=== PATIENT | female | born 1980 | race Caucasian/White ===

== ENCOUNTER 2019-08-04 15:13 | Outpatient (CLI) | payer OTHER, SELFPAY ==
[2019-08-04 15:41] LABS: Hematocrit 35.5 % (37.0-47.0); Hemoglobin 11.8 g/dL (12.0-15.0); Mean Corpuscular HGB Conc 33.2 g/dl (32-36); Mean Corpuscular Hemoglobin 31.7 pg (26-34); Mean Corpuscular Volume 95.4 fl (80-100); Mean Platelet Volume 9.5 fl (7.4-10.4); Platelet Count Result 191 k/mm3 (150-375); Red Blood Count 3.72 M/mm3 (4.2-5.4); Red Cell Distribution Width 11.9 % (11.5-14.5); White Blood Count 4.9 K/mm3 (4.5-10.0)
[2019-08-04 15:48] LABS: Alanine Aminotransferase 17 U/L (4-35); Albumin Level 3.9 g/dL (3.5-5.1); Alkaline Phosphatase 66 U/L (38-126); Aspartate Amino Transferase 21 U/L (14-36); Bilirubin,Total 0.2 mg/dL (0.2-1.3); Blood Urea Nitrogen 12 mg/dL (7-17); CRP < 0.5 mg/dL (<1.0); Calcium 8.7 mg/dL (8.4-10.2); Carbon Dioxide 28 mmol/L (22-30); Chloride 100 mmol/L (98-107); Estimated Glomerular Filt Rate > 60; Glucose 74 mg/dL (65-105); Potassium 3.7 mmol/L (3.4-5.0); Sodium 135 mmol/L (137-145)
[2019-08-04 15:52] LABS: Complement C3 87 mg/dL (88-165)
[2019-08-04 16:08] LABS: Erythrocyte Sedimentation Rate 20 mm/hr (0-20)
[2019-08-06 19:19] LABS: SS-A <1.0; SS-B <1.0
[2019-08-10 07:23] LABS: SM Antibody <1.0; SM/RNP Antibody <1.0
== END 2019-08-04 15:14 | disposition home or self-care (01) ==
LOC: ANHLAB 15:15
PROVIDERS: PCP Physician Assistant; Visit Provider Internal Medicine
DX: M06.041 Rheumatoid arthritis without rheumatoid factor, right hand (principal); M06.042 Rheumatoid arthritis without rheumatoid factor, left hand; M19.90 Unspecified osteoarthritis, unspecified site
CPT/HCPCS: 36415; 80053; 85027; 85652; 86140; 86160; 86225; 86235

== ENCOUNTER 2019-09-15 13:01 | Outpatient (CLI) | payer OTHER, SELFPAY ==
[2019-09-18 10:04] LABS: Lupus dRVVT 1:1 Mix Interpreta Not Indicated; Lupus dRVVT Screen 31 sec (<=45); PTT-LA Screen 39 sec (<=40)
== END 2019-09-15 13:02 | disposition home or self-care (01) ==
PROVIDERS: PCP Physician Assistant; Visit Provider Internal Medicine
DX: M06.041 Rheumatoid arthritis without rheumatoid factor, right hand (principal); M06.042 Rheumatoid arthritis without rheumatoid factor, left hand
CPT/HCPCS: 36415; 85613; 85730

== ENCOUNTER 2019-09-23 12:30 | Emergency (ER) | payer OTHER, SELFPAY ==
--- NOTE | 2019-09-23 12:43 | ED.GENADULT ---
HPI - General Adult General Chief complaint: Wound/Laceration Stated complaint: Right hand laceration Time Seen by Provider: 09/23/19 13:00 Source: patient Mode of arrival: ambulatory Limitations: no limitations History of Present Illness HPI narrative: 39-year-old female patient presents to the [facility] with complaints of a laceration to the right palm that happened approximately 2 hours prior to arrival. Patient states that she was cutting some vegetables and sliced her hand on a knife. Patient states that her last tetanus shot was approximately 1 year ago. Patient denies any problems with range of motion to the knee. Patient denies any numbness or tingling. Related Data Home Medications Medication Instructions Recorded Confirmed lamotrigine 100 mg tablet 100 mg PO DAILY 05/13/19 09/23/19 multivitamin 1 tablet PO DAILY 05/13/19 09/23/19 phenylephrine HCl 10 mg tablet 10 mg PO Q4-6H PRN 05/13/19 09/23/19 vilazodone 40 mg tablet 40 mg PO DAILY 05/13/19 09/23/19 potassium 99 mg tablet 99 mg PO .qd tablet 05/25/19 09/23/19 Allergies Allergy/AdvReac Type Severity Reaction Status Date / Time sulfamethoxazole Allergy Severe HIVES Verified 09/23/19 12:51 levofloxacin Allergy Unknown Unknown Verified 09/23/19 12:51 sulfamethizole Allergy Unknown Unknown Verified 09/23/19 12:51 trimethoprim Allergy Unknown Unknown Verified 09/23/19 12:51 Review of Systems Review of Systems: Narrative: CONSTITUTIONAL: Denies fever, chills, or sweats. EYES: Denies visual changes, redness, or discharge. ENT: Denies rhinorrhea, congestion, sore throat, or otalgia. CARDIOVASCULAR: Denies chest pain, palpitations, or edema. RESPIRATORY: Denies cough or dyspnea. GASTROINTESTINAL: Denies abdominal pain, nausea, vomiting, or diarrhea. GENITOURINARY: Denies dysuria or hematuria. SKIN: Denies rash or itching. Positive laceration to right hand MUSCULOSKELETAL: Denies back pain, joint pain, or myalgia. NEUROLOGIC: Denies headache, numbness, or weakness. PSYCHIATRIC: Denies anxiety or depression. [facility] Past Medical History Medical History Anxiety Arthritis Bilateral hand pain Depression History of gastrectomy Hypothyroidism Orthostatic hypertension Seronegative rheumatoid arthritis of both hands Surgical History Surgical History H/O thyroidectomy rt side History of bariatric surgery History of mastoidectomy History of tubal ligation Ovarian cyst With surgery Family History Family History Mother Rheumatoid arthritis Sjogren's disease Father Afib Hypertension Grandparent Heart disease Acute myocardial infarction Other Family history of Alzheimer's disease Family history of alcoholism Family history of atrial fibrillation Family history of thyroid disease Social History Social History Smoking status: Never smoker Second hand tobacco smoke exposure: Yes Additional smoking assessment comments: Smokes a little more than 1/2 PPD Alcohol intake: current Gender identity (if verbalized by the patient): Female Comments At the time of my signature I agree with nursing past medical history, surgical, social, and family history. There is no relevant family history pertinent to the presenting complaint. Exam Narrative: Exam Narrative: GENERAL: Well-appearing, well-nourished, and in no acute distress. HEAD: Normocephalic, atraumatic. EYES: PERRLA and EOMI. ENT: Nares clear, no rhinorrhea or epistaxis. Mucous membranes moist. NECK: Supple. No lymphadenopathy CHEST: Clear to auscultation. No respiratory distress. HEART: Regular rate and rhythm. No murmur heard. Normal peripheral pulses. ABDOMEN: Soft, nontender, nondistended, normal active bowel sounds. EXTREMITIES: Normal range of motion. No edema. SKI
[2019-09-23 12:50] VITALS: BP 119/70; PULSE 78; RESP 16; TEMP 37; O2SAT 98
== END 2019-09-23 13:35 | disposition home or self-care (01) ==
PROVIDERS: Emergency Provider Nurse Practitioner Family; PCP Physician Assistant
DX: S61.411A Laceration without foreign body of right hand, initial encounter (principal); W26.0XXA Contact with knife, initial encounter; F41.9 Anxiety disorder, unspecified; F32.9 Major depressive disorder, single episode, unspecified; M19.90 Unspecified osteoarthritis, unspecified site; E89.0 Postprocedural hypothyroidism; D89.9 Disorder involving the immune mechanism, unspecified
CPT/HCPCS: 12001; 99213; G0463

== ENCOUNTER 2019-11-09 15:01 | Outpatient (CLI) | payer OTHER, SELFPAY ==
[2019-11-09 15:32] LABS: Add Urine Microscopic? YES; Appearance Urine Clear (Clear); Bilirubin Urine Negative (Negative); Blood Urine Negative (Negative); Color Urine Yellow (Yellow); Glucose Urine UA Negative (Negative); Ketones Urine Negative (Negative); Leukocyte Esterase Ur Negative LEU/UL (Negative); Mucus Urine Few /lpf; Nitrate Urine Negative (Negative); Protein Urine 2+ mg/dL (Negative); RBC Urine 0-2 /hpf (0-2); Specific Grav Ur 1.025 (1.001-1.035); Squamous Epithelial Cell Urine Moderate /hpf (Few); Urobilinogen Urine Negative mg/dL (<2.0); WBC Urine 0-3 /hpf
[2019-11-09 15:33] LABS: Hematocrit 38.6 % (37.0-47.0); Hemoglobin 12.5 g/dL (12.0-15.0); Mean Corpuscular HGB Conc 32.4 g/dl (32-36); Mean Corpuscular Hemoglobin 32.1 pg (26-34); Mean Corpuscular Volume 99.2 fl (80-100); Mean Platelet Volume 9.8 fl (7.4-10.4); Platelet Count Result 201 k/mm3 (150-375); Red Blood Count 3.89 M/mm3 (4.2-5.4); Red Cell Distribution Width 12.1 % (11.5-14.5); White Blood Count 5.5 K/mm3 (4.5-10.0)
[2019-11-09 15:47] LABS: Alanine Aminotransferase 16 U/L (4-35); Albumin Level 4.2 g/dL (3.5-5.1); Alkaline Phosphatase 62 U/L (38-126); Aspartate Amino Transferase 24 U/L (14-36); Bilirubin,Total 0.2 mg/dL (0.2-1.3); Blood Urea Nitrogen 17 mg/dL (7-17); CRP < 0.5 mg/dL (<1.0); Calcium 8.7 mg/dL (8.4-10.2); Carbon Dioxide 31 mmol/L (22-30); Chloride 102 mmol/L (98-107); Estimated Glomerular Filt Rate > 60; Glucose 84 mg/dL (65-105); Potassium 4.3 mmol/L (3.4-5.0); Sodium 137 mmol/L (137-145)
== END 2019-11-09 15:02 | disposition home or self-care (01) ==
PROVIDERS: PCP Physician Assistant; Visit Provider Internal Medicine
DX: M06.041 Rheumatoid arthritis without rheumatoid factor, right hand (principal); M06.042 Rheumatoid arthritis without rheumatoid factor, left hand; M19.90 Unspecified osteoarthritis, unspecified site
CPT/HCPCS: 36415; 80053; 81001; 85027; 86140

== ENCOUNTER 2019-12-23 14:19 | Outpatient (CLI) | payer OTHER, SELFPAY ==
[2019-12-23 15:20] LABS: Hematocrit 36.5 % (37.0-47.0); Hemoglobin 12.4 g/dL (12.0-15.0); Mean Corpuscular Volume 97.1 fl (80-100); Platelet Count Result 184 k/mm3 (150-375); Red Blood Count 3.76 M/mm3 (4.2-5.4); Red Cell Distribution Width 11.9 % (11.5-14.5); White Blood Count 5.1 K/mm3 (4.5-10.0)
[2019-12-23 15:35] LABS: Alanine Aminotransferase 19 U/L (4-35); Albumin Level 4.1 g/dL (3.5-5.1); Alkaline Phosphatase 61 U/L (38-126); Aspartate Amino Transferase 27 U/L (14-36); Bilirubin,Total 0.2 mg/dL (0.2-1.3); Blood Urea Nitrogen 20 mg/dL (7-17); Calcium 8.9 mg/dL (8.4-10.2); Carbon Dioxide 26 mmol/L (22-30); Chloride 110 mmol/L (98-107); Estimated Glomerular Filt Rate > 60; Glucose 85 mg/dL (65-105); Potassium 4.1 mmol/L (3.4-5.0); Sodium 142 mmol/L (137-145)
[2019-12-23 16:29] LABS: Iron 110 ug/dL (37-170)
[2019-12-23 16:44] LABS: Vitamin D 25 Hydroxy 44.8 ng/mL
[2019-12-23 17:24] LABS: Folic Acid 15.1 ng/mL (2.76->20)
[2019-12-27 10:05] LABS: Vitamin B1 <6 nmol/L (8-30)
== END 2019-12-23 14:20 | disposition home or self-care (01) ==
PROVIDERS: PCP Physician Assistant
DX: R63.4 Abnormal weight loss (principal); R61 Generalized hyperhidrosis; E66.01 Morbid (severe) obesity due to excess calories; D64.9 Anemia, unspecified; K91.2 Postsurgical malabsorption, not elsewhere classified; Z98.84 Bariatric surgery status
CPT/HCPCS: 36415; 80053; 82306; 82607; 82728; 82746; 83540; 84425; 84443; 85027

== ENCOUNTER 2020-01-27 11:04 | Outpatient (CLI) | payer OTHER, SELFPAY ==
--- NOTE | ~2020-01-27 | MR_ITS ---
. EXAMINATION: MR lumbar spine wo con DATE: 01/27/2020 12:38 INDICATION: Low back pain. TECHNIQUE: Magnetic resonance imaging (MRI) of the lumbar spine was performed without intravenous con trast. Sequences included sagittal T2-weighted FSE, sagittal STIR FSE, sagittal T1-weighted FSE, and axial T2-weighted FSE. COMPARISON: Lumbar spine MRI 04/08/2017 FINDINGS: Bone alignment is normal. L5 is a transitional segment. There is mild chronic anterior wedg ing of T11 and T12 vertebral bodies, likely physiologic. There is mildly decreased disc height from T 12-L1 through L4-L5. The distal spinal cord signal intensity is normal. The conus medullaris is at T1 2-L1. The following disc levels are specifically discussed: L1-L2: There is a right central extrusion with 4 mm superior extension. There is mild bilateral facet joint osteoarthritis. There is no neural foraminal stenosis. There is mild central canal stenosis. L2-L3: The disc is bulging and has an annular fissure. There is no facet joint osteoarthritis. There is mild left neural foraminal stenosis. There is mild central canal stenosis. L3-L4: The disc is bulging and has an annular fissure. There is mild bilateral facet joint osteoarthr itis. There is mild bilateral neural foraminal stenosis. There is mild central canal stenosis. L4-L5: The disc is bulging and has an annular fissure. There is mild left facet joint osteoarthritis. There is mild bilateral neural foraminal stenosis. There is mild central canal stenosis. L5-S1: The disc does not extend beyond the endplate margin. There is no facet joint osteoarthritis. T here is no neural foraminal stenosis. There is no central canal stenosis. IMPRESSION: 1. Mild lumbar spondylosis, stable from 04/08/2017. Reviewed, dictated and finalized at location A.
== END 2020-01-27 11:05 | disposition home or self-care (01) ==
PROVIDERS: PCP Physician Assistant; Visit Provider Physician Assistant
DX: M48.00 Spinal stenosis, site unspecified (principal); M54.30 Sciatica, unspecified side; M54.5 Low back pain; M47.896 Other spondylosis, lumbar region
CPT/HCPCS: 72148

== ENCOUNTER 2020-03-04 07:54 | Outpatient (CLI) | payer OTHER, SELFPAY ==
--- NOTE | ~2020-03-04 | US_ITS ---
EXAMINATION: US right upper quadrant DATE: 03/04/2020 08:56 INDICATION: Right upper quadrant abdominal pain. Nausea. TECHNIQUE: Multiple grayscale and Doppler ultrasound images of the abdomen were obtained. COMPARISON: Ultrasound 10/30/2018 FINDINGS: The visualized portions of the head and body of the pancreas are normal. The liver is marisa l without focal lesion. No liver surface nodularity. There is normal flow in main portal vein. The ga llbladder is normal in size. No gallstones or gallbladder wall thickening. There was no sonographic M urphy sign. The common duct is normal and measures 3 mm. IMPRESSION: 1. Normal right upper quadrant ultrasound. Reviewed, dictated and finalized at location A.
== END 2020-03-04 07:55 | disposition home or self-care (01) ==
PROVIDERS: PCP Physician Assistant; Visit Provider Physician Assistant
DX: R10.11 Right upper quadrant pain (principal)
CPT/HCPCS: 76705

== ENCOUNTER 2020-05-16 13:55 | Outpatient (CLI) | payer OTHER, SELFPAY ==
[2020-05-16 14:31] LABS: Hematocrit 37.3 % (37.0-47.0); Hemoglobin 12.7 g/dL (12.0-15.0); Mean Corpuscular Hemoglobin 34.4 pg (26-34); Mean Corpuscular Volume 101.1 fl (80-100); Mean Platelet Volume 9.6 fl (7.4-10.4); Platelet Count Result 193 k/mm3 (150-375); Red Blood Count 3.69 M/mm3 (4.2-5.4); White Blood Count 5.2 K/mm3 (4.5-10.0)
[2020-05-16 14:37] LABS: Add Urine Microscopic? YES; Appearance Urine Clear (Clear); Bilirubin Urine 1+ (Negative); Blood Urine Negative (Negative); Color Urine Amber (Yellow); Glucose Urine UA Negative (Negative); Ketones Urine Negative (Negative); Leukocyte Esterase Ur Trace LEU/UL (Negative); Mucus Urine Heavy /lpf; Nitrate Urine Negative (Negative); Protein Urine 2+ mg/dL (Negative); Squamous Epithelial Cell Urine Few /hpf (Few); WBC Urine 0-3 /hpf
[2020-05-16 14:40] LABS: Specific Grav Ur 1.032 (1.001-1.035)
[2020-05-16 14:47] LABS: Alanine Aminotransferase 12 U/L (4-35); Albumin Level 3.9 g/dL (3.5-5.1); Alkaline Phosphatase 53 U/L (38-126); Anion Gap 4 mmol/L (8-16); Aspartate Amino Transferase 21 U/L (14-36); Bilirubin,Total 0.3 mg/dL (0.2-1.3); Blood Urea Nitrogen 13 mg/dL (7-17); CRP < 0.5 mg/dL (<1.0); Calcium 8.8 mg/dL (8.4-10.2); Carbon Dioxide 33 mmol/L (22-30); Chloride 102 mmol/L (98-107); Estimated Glomerular Filt Rate > 60; Glucose 87 mg/dL (65-105); Potassium 3.7 mmol/L (3.4-5.0); Sodium 139 mmol/L (137-145)
[2020-05-16 15:17] LABS: Erythrocyte Sedimentation Rate 17 mm/hr (0-20)
== END 2020-05-16 13:56 | disposition home or self-care (01) ==
LOC: ANHLAB 13:56
PROVIDERS: PCP Physician Assistant; Visit Provider Internal Medicine
DX: M06.041 Rheumatoid arthritis without rheumatoid factor, right hand (principal); M06.042 Rheumatoid arthritis without rheumatoid factor, left hand; M19.90 Unspecified osteoarthritis, unspecified site
CPT/HCPCS: 36415; 80053; 81001; 85027; 85652; 86140

== ENCOUNTER 2020-07-11 15:08 | Outpatient (CLI) | payer OTHER, SELFPAY ==
[2020-07-11 15:43] LABS: Hematocrit 35.7 % (37.0-47.0); Hemoglobin 12.1 g/dL (12.0-15.0); Mean Corpuscular HGB Conc 33.9 g/dl (32-36); Mean Corpuscular Hemoglobin 34.2 pg (26-34); Mean Corpuscular Volume 100.8 fl (80-100); Mean Platelet Volume 9.2 fl (7.4-10.4); Platelet Count Result 189 k/mm3 (150-375); Red Blood Count 3.54 M/mm3 (4.2-5.4); Red Cell Distribution Width 11.9 % (11.5-14.5); White Blood Count 5.4 K/mm3 (4.5-10.0)
[2020-07-11 15:47] LABS: Add Urine Microscopic? YES; Appearance Urine Clear (Clear); Bilirubin Urine Negative (Negative); Blood Urine Negative (Negative); Color Urine Yellow (Yellow); Glucose Urine UA Negative (Negative); Ketones Urine Negative (Negative); Leukocyte Esterase Ur Negative LEU/UL (Negative); Mucus Urine Rare /lpf; Nitrate Urine Negative (Negative); Protein Urine 1+ mg/dL (Negative); RBC Urine 0-2 /hpf (0-2); Specific Grav Ur 1.025 (1.001-1.035); Squamous Epithelial Cell Urine Occasional /hpf (Few); Urobilinogen Urine Negative mg/dL (<2.0); WBC Urine 0-3 /hpf
[2020-07-11 15:59] LABS: Alanine Aminotransferase 15 U/L (4-35); Albumin Level 3.8 g/dL (3.5-5.1); Alkaline Phosphatase 41 U/L (38-126); Anion Gap 2 mmol/L (8-16); Aspartate Amino Transferase 23 U/L (14-36); Bilirubin,Total 0.3 mg/dL (0.2-1.3); Blood Urea Nitrogen 14 mg/dL (7-17); CRP < 0.5 mg/dL (<1.0); Calcium 8.6 mg/dL (8.4-10.2); Carbon Dioxide 31 mmol/L (22-30); Chloride 104 mmol/L (98-107); Estimated Glomerular Filt Rate > 60; Glucose 99 mg/dL (65-105); Potassium 3.8 mmol/L (3.4-5.0); Sodium 137 mmol/L (137-145)
[2020-07-11 16:52] LABS: Erythrocyte Sedimentation Rate 17 mm/hr (0-20)
== END 2020-07-11 15:09 | disposition home or self-care (01) ==
LOC: ANHLAB 15:11
PROVIDERS: PCP Physician Assistant; Visit Provider Internal Medicine
DX: M06.041 Rheumatoid arthritis without rheumatoid factor, right hand (principal); M06.042 Rheumatoid arthritis without rheumatoid factor, left hand; M19.90 Unspecified osteoarthritis, unspecified site
CPT/HCPCS: 36415; 80053; 81001; 85027; 85652; 86140

== ENCOUNTER 2020-08-29 12:20 | Outpatient (CLI) | payer OTHER, SELFPAY ==
[2020-08-29 12:50] LABS: Basophils Percent Auto 0.7 % (0.2-1.2); Eosinophils Absolute Auto 0.4 K/mm3 (0-0.3); Eosinophils Percent Auto 8.4 % (0-4.4); Hematocrit 37.9 % (37.0-47.0); Hemoglobin 13.1 g/dL (12.0-15.0); Lymphocytes Percent Auto 38.5 % (18.3-44.2); Mean Corpuscular HGB Conc 34.6 g/dl (32-36); Mean Corpuscular Hemoglobin 34.5 pg (26-34); Mean Corpuscular Volume 99.7 fl (80-100); Mean Platelet Volume 8.9 fl (7.4-10.4); Monocytes Absolute Auto 0.3 K/mm3 (0.1-0.6); Neutrophils Absolute Auto 1.9 K/mm3 (1.3-6.7); Neutrophils Percent Auto 45.4 % (45.5-73.1); Platelet Count Result 225 k/mm3 (150-375); Red Cell Distribution Width 11.9 % (11.5-14.5); White Blood Count 4.2 K/mm3 (4.5-10.0)
[2020-08-29 12:52] LABS: Creatinine Urine 139.9 mg/dL; Total Protein Urine Random 7 mg/dL; Ur Ttl Prot Creatinine Ratio 0.05 mg/mg (0-0.20)
[2020-08-29 12:55] LABS: Add Urine Microscopic? YES; Appearance Urine Clear (Clear); Bilirubin Urine Negative (Negative); Blood Urine 1+ (Negative); Color Urine Yellow (Yellow); Glucose Urine UA Negative (Negative); Ketones Urine Negative (Negative); Leukocyte Esterase Ur Trace LEU/UL (Negative); Mucus Urine Heavy /lpf; Nitrate Urine Negative (Negative); Protein Urine Negative (Negative); RBC Urine 0-2 /hpf (0-2); Squamous Epithelial Cell Urine Rare /hpf (Few); WBC Urine 0-3 /hpf
[2020-08-29 13:00] LABS: Alanine Aminotransferase 14 U/L (4-35); Albumin Level 4.1 g/dL (3.5-5.1); Alkaline Phosphatase 51 U/L (38-126); Anion Gap 2 mmol/L (8-16); Aspartate Amino Transferase 21 U/L (14-36); Bilirubin,Total 0.3 mg/dL (0.2-1.3); Blood Urea Nitrogen 12 mg/dL (7-17); CRP < 0.5 mg/dL (<1.0); Calcium 8.9 mg/dL (8.4-10.2); Carbon Dioxide 32 mmol/L (22-30); Chloride 105 mmol/L (98-107); Estimated Glomerular Filt Rate > 60; Glucose 96 mg/dL (65-105); Potassium 3.8 mmol/L (3.4-5.0); Sodium 139 mmol/L (137-145)
[2020-08-29 13:06] LABS: Complement C3 80 mg/dL (88-165)
[2020-08-29 15:45] LABS: Erythrocyte Sedimentation Rate 16 mm/hr (0-20)
== END 2020-08-29 12:21 | disposition home or self-care (01) ==
PROVIDERS: PCP Physician Assistant; Visit Provider Internal Medicine
DX: M06.041 Rheumatoid arthritis without rheumatoid factor, right hand (principal); M06.042 Rheumatoid arthritis without rheumatoid factor, left hand; M19.90 Unspecified osteoarthritis, unspecified site
CPT/HCPCS: 36415; 80053; 81001; 82570; 84156; 85025; 85652; 86140; 86160

== ENCOUNTER 2020-10-07 12:25 | Outpatient (CLI) | payer OTHER, SELFPAY ==
[2020-10-07 13:31] LABS: Free T4 Free Thyroxine 1.12 ng/mL (0.78-2.19)
[2020-10-07 14:15] LABS: Folic Acid > 20.0 ng/mL (2.76->20)
== END 2020-10-07 12:26 | disposition home or self-care (01) ==
LOC: ANHLAB 12:27
PROVIDERS: PCP Physician Assistant; Visit Provider Physician Assistant
DX: E03.9 Hypothyroidism, unspecified (principal); E53.8 Deficiency of other specified B group vitamins
CPT/HCPCS: 36415; 82607; 82746; 84439; 84443

== ENCOUNTER 2020-11-29 14:31 | Outpatient (CLI) | payer OTHER, SELFPAY ==
--- NOTE | ~2020-11-29 | CT_ITS ---
EXAMINATION: CT IAC/mastoids BI wo con DATE: 11/29/2020 14:51 INDICATION: Otalgia, right ear. TECHNIQUE: Computed tomography (CT) of the temporal bones was performed without intravenous contrast. Automated exposure control and iterative reconstruction technique were employed. The dose-length pro duct was 248.68 mGy-cm. COMPARISON: None FINDINGS: RIGHT TEMPORAL BONE: The internal auditory canal, cochlea, vestibule, and vestibular aqueduct are normal. There is dehisce nce of superior semicircular canal. Carotid canal and jugular bulb are normal. The ossicles and scutu m are normal. There is dehiscence of the tegmen tympani. There is thickening of the tympanic membrane posteriorly. Prussak space and scutum are normal. There are changes of mastoidectomy. The external a uditory canal is normal. There is severe osteoarthritis of the temporomandibular joint. LEFT TEMPORAL BONE: The internal auditory canal, cochlea, vestibule, and vestibular aqueduct are normal. There is dehisce nce of superior semicircular canal. The carotid canal and jugular bulb are normal. There is dehiscenc e of tegmen tympani. The ossicles, Prussak space, scutum, tympanic membrane, and external auditory ca nals are normal. There is a trace left mastoid effusion. There is severe temporomandibular joint oste oarthritis. IMPRESSION: 1. Thickening of right tympanic membrane posteriorly. 2. Right-sided mastoidectomy. 3. Dehiscence of the bilateral superior semicircular canals. 4. Severe bilateral temporomandibular joint osteoarthritis. Reviewed, dictated and finalized at location A.
== END 2020-11-29 14:32 | disposition home or self-care (01) ==
LOC: ANHIMG 14:32
PROVIDERS: PCP Physician Assistant; Visit Provider Physician Assistant
DX: H92.01 Otalgia, right ear (principal); Z86.69 Personal history of other diseases of the nervous system and sense organs; M19.09 Primary osteoarthritis, other specified site
CPT/HCPCS: 70480

== ENCOUNTER 2020-12-16 14:16 | Outpatient (CLI) | payer OTHER, SELFPAY ==
--- NOTE | ~2020-12-16 | CT_ITS ---
EXAMINATION: CT cervical spine wo [facility] EXAM DATE: 12/16/2020 14:36 INDICATION: M54.2 - Cervicalgia. Right-sided neck pain. TECHNIQUE: Spiral CT of the cervical spine was performed without contrast. Axial images were reviewe d. Coronal and sagittal reformatted images cervical spine were also reviewed. The dose-length produc t (DLP) for this examination was 410.25 mGy-cm. The exposure was tailored according to patient size (auto mA exposure control), and iterative reconstruction (ASIR) was used as additional dose reduction technique. There is no prior study for comparison. FINDINGS: Mild to moderate C5-6 disc disease. The vertebral body and disc heights are otherwise well maintained. The vertebral bodies are aligned in the AP dimension. There are no acute fractures ident ified. The odontoid process is intact. The lateral masses of C1 line up with C2. Prevertebral soft t issue and pre-dens space are within normal limits. Level by level evaluation: C2-C3: Disc does not extend beyond the endplate margin. Uncovertebral joint arthropathy: None. Facet joint arthropathy: None. Neural foraminal stenosis: No stenosis. Central canal stenosis: No stenosis. C3-C4: Disc does not extend beyond the endplate margin. Uncovertebral joint arthropathy: None. Facet joint arthropathy: Minimal. Neural foraminal stenosis: No stenosis. Central canal stenosis: No stenosis. C4-C5: Disc does not extend beyond the endplate margin. Uncovertebral joint arthropathy: Mild left. Facet joint arthropathy: Minimal. Neural foraminal stenosis: No stenosis. Central canal stenosis: No stenosis. C5-C6: There is a mild diffuse disc bulge. Uncovertebral joint arthropathy: Mild to moderate left, mild right. Facet joint arthropathy: Minimal bilateral. Neural foraminal stenosis: Mild left. Central canal stenosis: No stenosis. C6-C7: Disc does not extend beyond the endplate margin. Uncovertebral joint arthropathy: Mild left. Facet joint arthropathy: Minimal. Neural foraminal stenosis: No stenosis. Central canal stenosis: No stenosis. C7-T1: Disc does not extend beyond the endplate margin. Uncovertebral joint arthropathy: None. Facet joint arthropathy: Minimal. Neural foraminal stenosis: No stenosis. Central canal stenosis: No stenosis. IMPRESSION: 1. C5-6 mild to moderate disc disease and left uncovertebral joint arthropathy. 2. Otherwise minimal spondylosis. Reviewed, dictated and finalized at location B. IMPRESSION: 1. C5-6 mild to moderate disc disease and left uncovertebral joint arthropathy . 2. Otherwise minimal spondylosis.
== END 2020-12-16 14:17 | disposition home or self-care (01) ==
LOC: ANHIMG 14:17
PROVIDERS: PCP Physician Assistant; Visit Provider Physician Assistant
DX: M50.822 Other cervical disc disorders at C5-C6 level (principal); M47.812 Spondylosis without myelopathy or radiculopathy, cervical region
CPT/HCPCS: 72125

== ENCOUNTER 2021-04-03 12:07 | Outpatient (CLI) | payer OTHER, SELFPAY ==
[2021-04-03 12:59] LABS: Add Urine Microscopic? YES; Appearance Urine Cloudy (Clear); Bilirubin Urine Negative (Negative); Blood Urine 3+ (Negative); Color Urine Amber (Yellow); Glucose Urine UA Negative (Negative); Ketones Urine Trace mg/dL (Negative); Leukocyte Esterase Ur 2+ LEU/UL (NEGATIVE); Mucus Urine Heavy /lpf; Nitrate Urine Negative (Negative); Protein Urine 2+ mg/dL (Negative); RBC Urine >75 /hpf (0-2); Specific Grav Ur 1.029 (1.001-1.035); Squamous Epithelial Cell Urine Occasional /hpf (Few); Urobilinogen Urine Negative mg/dL (<2.0); WBC Urine >75 /hpf (0-3)
== END 2021-04-03 12:08 | disposition home or self-care (01) ==
PROVIDERS: PCP Physician Assistant; Visit Provider Physician Assistant
DX: R30.0 Dysuria (principal)
CPT/HCPCS: 81001; 87086; 87088